=== PATIENT | female | born 1995 ===

== ENCOUNTER 2017-06-15 05:13 | Inpatient (IN) | payer OTHER ==
[~2017-06-15] VITALS: Ht 167.6 cm; Wt 74.4 kg
[~2017-06-15 05:13] MED LIST: AMPICILLIN TRI500 MG PO; PRENATABS RX T1 EACH; PRENATAL TABLE1 EAC4 PO; ZOFRAN8 MG
== END 2017-06-17 12:04 | disposition home or self-care (01) | DRG 775 ==
LOC: LDR 05:13 → SURG-SUITE 18:32 → OB/GYN 06-17 10:47 → SURG-SUITE 06-17 12:04
PROC: 0HQ9XZZ Repair Perineum Skin, External Approach (ICD-10-PCS; principal; 2017-06-15)
PROC: 10E0XZZ Delivery of Products of Conception, External Approach (ICD-10-PCS; 2017-06-15)
PROC: 4A1HXCZ Monitoring of Products of Conception, Cardiac Rate, External Approach (ICD-10-PCS; 2017-06-15)
DX: O70.0 First degree perineal laceration during delivery (principal); O48.0 Post-term pregnancy; Z3A.40 40 weeks gestation of pregnancy; Z37.0 Single live birth